=== PATIENT | female | born 1955 | race Caucasian/White ===

== ENCOUNTER 2020-08-24 06:13 | Day surgery (SDC) | payer OTHER ==
[2020-08-17 13:14] VITALS: BMI 32.5
[2020-08-24] MEDS ORDERED: fentaNYL CITRATE 250 MCG/5 ML VIAL ONE (06:43)
[2020-08-24] MEDS ORDERED: LIDOCAINE HCL/PF 2% SDV 5ML VIAL ONE (06:43)
[2020-08-24] MEDS ORDERED: PROPOFOL 20 ML ONE ×10 (06:44)
[2020-08-24] MEDS ORDERED: MIDAZOLAM HCL 2 MG/2 ML SINGLE DOSE VIAL ONE (06:44)
[2020-08-24] MEDS ORDERED: ROCURONIUM BROMIDE 50 MG/5 ML SYRINGE ONE ×3 (06:44→10:05)
[2020-08-24] MEDS ORDERED: SUCCINYLCHOLINE CHLORIDE 200 MG/10 ML SYRINGE ONE (06:44)
[2020-08-24] MEDS ORDERED: LIDOCAINE HCL 2% JELLY (5 ML/TUBE) ONE (06:46)
[2020-08-24] MEDS ORDERED: EPINEPHrine/PF 1 MG/1 ML (1:1,000) AMPULE ONE (07:46)
[2020-08-24] MEDS ORDERED: LIDOCAINE HCL 1%, 10 MG/ML (20ML VIAL) ONE (07:47)
[2020-08-24] MEDS ORDERED: BUPIVACAINE HCL/EPINEPHRINE/PF 30 ML VIAL IJ ONE ×3 (08:04→10:46)
[2020-08-24] MEDS ORDERED: GLYCOPYRROLATE 0.2 MG/1 ML VIAL ONE ×2 (09:06→12:03)
[2020-08-24] MEDS ORDERED: NEOSTIGMINE METHYLSULFATE 0.5 MG/1 ML - 10 ML MDV ONE (12:02)
[2020-08-24] MEDS ORDERED: GUM MASTIC/STORAX/MSAL/ALCOHOL 1 DRP DROPSBTL MC ONE (12:10)
[2020-08-24] MEDS ORDERED: ESMOLOL HCL 100,000 MCG/10 ML VIAL ONE (12:15)
[2020-08-24] MEDS ORDERED: PROMETHAZINE HCL 25 MG/1 ML VIAL IVPUSH PRN (12:52)
[2020-08-24] MEDS ORDERED: oxyCODONE HCL 5 MG TABLET PO PRN (12:52)
[2020-08-24] MEDS ORDERED: ONDANSETRON 4 MG/2 ML VIAL IVPUSH PRN ×2 (12:52→13:01)
[2020-08-24] MEDS ORDERED: ACETAMINOPHEN 325 MG TABLET (FP) PO PRN (13:01)
[2020-08-24] MEDS ORDERED: diazePAM 5 MG TABLET PO PRN (13:01)
[2020-08-24] MEDS ORDERED: LACTATED RINGERS SOLUTION 1,000 ML IV SCH (13:15)
[2020-08-24] MEDS: HEPARIN NA (PORCINE) 5,000 UNITS/ML 1ML VIAL SQ SCH ×2 (13:25→21:16)
[2020-08-24] MEDS: oxyCODONE HCL 5 MG TABLET PO PRN ×2 (16:21→21:18)
[2020-08-24] MEDS: CEFAZOLIN 1 GM/D5W 1 GM/50 ML BAG IVPB SCH ×2 (16:22→21:16)
[2020-08-25] MEDS: oxyCODONE HCL 5 MG TABLET PO PRN ×3 (01:29→10:39)
[2020-08-25] MEDS: CEFAZOLIN 1 GM/D5W 1 GM/50 ML BAG IVPB SCH ×2 (02:44→09:15)
[2020-08-25 06:24] VITALS: BP 103/55; PULSE 75; TEMP 98.6
[2020-08-25] MEDS: HEPARIN NA (PORCINE) 5,000 UNITS/ML 1ML VIAL SQ SCH (09:15)
== END 2020-08-25 11:20 | disposition home or self-care (01) ==
LOC: FASU 06:13 → FM/S 14:52 → FASU 08-25 11:20
PROVIDERS: ATTEND Plastic Surgery
PROC: 0DP64CZ Removal of Extraluminal Device from Stomach, Percutaneous Endoscopic Approach (ICD-10-PCS; principal; 2020-08-24 08:23)
PROC: 0J080ZZ Alteration of Abdomen Subcutaneous Tissue and Fascia, Open Approach (ICD-10-PCS; 2020-08-24 08:23)
DX: T85.598A Other mechanical complication of other gastrointestinal prosthetic devices, implants and grafts, initial encounter (principal); R10.13 Epigastric pain; R11.10 Vomiting, unspecified; L98.7 Excessive and redundant skin and subcutaneous tissue; K66.0 Peritoneal adhesions (postprocedural) (postinfection)
CPT/HCPCS: 88300-TC; 88304-TC; 94760; J1644